=== PATIENT | male | born 1990 | race Caucasian/White ===

== ENCOUNTER 2020-07-16 22:06 | Emergency (ER) | payer SELFPAY ==
[~2020-07-16] VITALS: Ht 167.6 cm; Wt 81.0 kg
[2020-07-16] MEDS ORDERED: TETANUS, DIPHTHERIA, PERTUSSIS VAC/PF 0.5ML (>7YR OLD) IM ONE (22:45)
[2020-07-16] MEDS ORDERED: IBUPROFEN 600MG TABLET PO ONE (22:45)
[2020-07-16] MEDS ORDERED: BACITRACIN ZINC OINT UDPKT TOP ONE (23:00)
[2020-07-16] MEDS ORDERED: IBUP-2029 MT (23:47)
[2020-07-16 23:59] VITALS: BP 133/76
== END 2020-07-17 00:01 | disposition home or self-care (01) ==
LOC: ER 22:06
DX: S20.212A Contusion of left front wall of thorax, initial encounter (principal); S29.012A Strain of muscle and tendon of back wall of thorax, initial encounter; S80.212A Abrasion, left knee, initial encounter; V49.49XA Driver injured in collision with other motor vehicles in traffic accident, initial encounter; R03.0 Elevated blood-pressure reading, without diagnosis of hypertension; Y93.89 Activity, other specified; Y92.488 Other paved roadways as the place of occurrence of the external cause; Z23 Encounter for immunization
CPT/HCPCS: 71045; 90471; 90715; 99283